=== PATIENT | male | born 2000 | race Caucasian/White ===

== ENCOUNTER 2023-07-15 17:57 | Emergency (ER) | payer BC ==
[2023-07-15] MEDS ORDERED: Tetracaine HCl/PF 0.5% 4 ML Bottle EYERT ONE (19:27)
[2023-07-15] MEDS ORDERED: Albuterol 8 GM Inhaler INH ONE (19:27)
== END 2023-07-15 21:50 | disposition home or self-care (01) ==
LOC: MW.ED 17:57
DX: T26.61XA Corrosion of cornea and conjunctival sac, right eye, initial encounter (principal); R05.2 Subacute cough; X58.XXXA Exposure to other specified factors, initial encounter
CPT/HCPCS: 71046; 99283; A9270; J3490

== ENCOUNTER 2025-06-28 04:46 | Emergency (ER) | payer BC, OTHER ==
[2025-06-28] MEDS: Ketorolac 30 MG/ML SDV IM ONE (05:09)
[2025-06-28] MEDS: Benzocaine 20% Topical Spray UD MUCMEM ONE (05:09)
[2025-06-28] MEDS: Lidocaine 2% Viscous Solution 15 ML UD PO ONE (05:09)
== END 2025-06-28 05:10 | disposition home or self-care (01) ==
LOC: MW.ED 04:46
DX: K01.1 Impacted teeth (principal); K08.89 Other specified disorders of teeth and supporting structures; Z79.899 Other long term (current) drug therapy
CPT/HCPCS: 99282; A9270; J3490; 99283